=== PATIENT | female | born 1960 | race Caucasian/White ===

== ENCOUNTER 2024-04-23 10:42 | Emergency (ER) | payer OTHER, SELFPAY ==
[2024-04-23 10:53] VITALS: BP 192/118
[2024-04-23 11:26] VITALS: BP 197/125
[2024-04-23 11:31] VITALS: BMI 36.9
--- NOTE | 2024-04-23 11:53 | ED.GENMED ---
History of Present Illness
<PAM Dyer Last Filed: 04/23/24 14:09>
General
Chief Complaint: Breathing Problem
Source: patient
Exam Limitations: none
Time Seen by Provider: 04/23/24 11:29
Nursing documentation reviewed up to this point in time: agreed with
History of Present Illness
History of Present Illness:
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 Patient states that for the past 2 days, she has had shortness of
breath, cough, and runny nose and sore throat. Patient went to urgent care today and they did test her for COVID which was positive. He also did a chest x-ray which according to her did not show any evidence of pneumonia. However, considering her
history of PE, patient was sent to the emergency department for further evaluation. Patient denies chest pain, palpitations. Patient denies pain or swelling in her lower extremities. Patient denies recent long distance travel. Patient does note
that she has a family history of blood clots and states that her father of a PE, and her sister has had many blood clots. Patient [place] any history of cancer. Patient is a abdominal pain, fevers or chills, dysphagia, tongue or lip swelling,
recent new medications. Patient denies any known sick contacts.
Past History
<PAM Dyer Last Filed: 04/23/24 14:09>
Past History
ED Past Medical History: HTN and Other (Cellulitis, Kidney stones, Horse shoe blood clot in the chest)
ED Past Surgical History: (X 1) and Other (gastric bypass)
Social History
Tobacco: Non-smoker
Alcohol: Daily (Wine 3 glasses)
Personal:
Living: with family
Review of Systems
<Paz Contreras PA-C - Last Filed: 04/23/24 14:09>
Review of Systems
All Other Systems: ROS reviewed and negative except as documented in HPI and ROS
Phy Exam
<Paz Contreras PA-C - Last Filed: 04/23/24 14:09>
Physical Exam
Physical Exam:
General: Patient is well appearing and in no acute distress; non-toxic
Skin: Warm and dry, no rashes or lesions
Head: Normocephalic, atraumatic
Eyes: Sclera non-icteric. EOMs intact. PERRLA.
Mouth/throat: Dentition intact, no intraoral lesions, mild pharyngeal erythema, uvula midline
Cardiac: Regular rate and rhythm, no murmurs.
Peripheral Vascular: No lower extremity swelling or edema
Pulm: Normal respiratory effort, no wheezes, rales, rhonchi
Abdomen: No abdominal tenderness to palpation
Neuro: CN II-XII intact, no focal neurologic deficits.
Psychiatric: Appropriate mood and affect.
Scores
<Paz Contreras PA-C - Last Filed: 04/23/24 14:09>
Heart Failure Risk
Heart Failure Risk Score: Not Applicable
PE Wells Score
Symptoms of DVT: No
No alternative diagnosis better explains the illness: No
Tachycardia with pulse > 100: No
Immobilization (>=3 days) or surgery within previous 4 weeks: No
Prior history of DVT or pulmonary embolism: Yes
Presence of hemoptysis: No
Presence of malignancy: No
Pulmonary Embolism Risk Score: 1.5
Probability of PE: Pt is low risk
<Karen Kelly MD - Last Filed: 04/23/24 12:23>
PE Wells Score
Symptoms of DVT: No
No alternative diagnosis better explains the illness: No
Tachycardia with pulse > 100: No
Immobilization (>=3 days) or surgery within previous 4 weeks: No
Prior history of DVT or pulmonary embolism: Yes
Presence of hemoptysis: No
Presence of malignancy: No
Pulmonary Embolism Risk Score: 1.5
Probability of PE: Pt is low risk
Course
<Paz Contreras PA-C - Last Filed: 04/23/24 14:09>
Orders/Labs/Results
Orders:
Orders
04/23/24 12:06
Electrocardiogram (*1) Urgent
Reason for Study: Shortness of Breath
EKG- Treatment ONCE
04/23/24 12:14
Complete Blood Count/With Diff Urgent
Comprehensive Metabolic Panel Urgent
04/23/24 12:40
D-Dimer Urgent
Abnormal Lab Results
04/23/24 04/23/24
12:14 12:40
WBC 4.5 L 10^3/uL
(4.8-10.8)
RBC 4.04 L 10^6/uL
(4.20-5.40)
MPV 10.7 H fL
(7.4-10.4)
Monocytes % 11.1 H %
(1.7-9.3)
D-Dimer 0.61 H ug/mlFEU
(0.00-0.50)
Chloride 109 H mmol/L
(98-107)
Alkaline Phosphatase 138 H U/L
(38-126)
04/23/24 12:14
04/23/24 12:14
Vital Signs
Initial and Last Documented VS:
Initial Vital Signs
Pulse Resp BP Pulse Ox
81 16 192/118 100
04/23/24 10:53 04/23/24 10:53 04/23/24 10:53 04/23/24 10:53
Last Documented Vital Signs
Pulse Resp BP Pulse Ox
80 14 159/107 99
04/23/24 12:46 04/23/24 12:46 04/23/24 13:38 04/23/24 12:46
<Kaern Kelly MD - Last Filed: 04/23/24 12:23>
Orders/Labs/Results
Orders:
Orders
04/23/24 12:06
Electrocardiogram (*1) Urgent
Reason for Study: Shortness of Breath
EKG- Treatment ONCE
04/23/24 12:14
Complete Blood Count/With Diff Urgent
Comprehensive Metabolic Panel Urgent
04/23/24 12:40
D-Dimer Urgent
Abnormal Lab Results
04/23/24 04/23/24
12:14 12:40
WBC 4.5 L 10^3/uL
(4.8-10.8)
RBC 4.04 L 10^6/uL
(4.20-5.40)
MPV 10.7 H fL
(7.4-10.4)
Monocytes % 11.1 H %
(1.7-9.3)
D-Dimer 0.61 H ug/mlFEU
(0.00-0.50)
Chloride 109 H mmol/L
(98-107)
Alkaline Phosphatase 138 H U/L
(38-126)
04/23/24 12:14
04/23/24 12:14
Vital Signs
Initial and Last Documented VS:
Initial Vital Signs
Pulse Resp BP Pulse Ox
81 16 192/118 100
04/23/24 10:53 04/23/24 10:53 04/23/24 10:53 04/23/24 10:53
Last Documented Vital Signs
Pulse Resp BP Pulse Ox
80 14 159/107 99
04/23/24 12:46 04/23/24 12:46 04/23/24 13:38 04/23/24 12:46
<Paz Contreras PA-C - Last Filed: 04/23/24 14:09>
MDM/Problems Addressed
Differential Diagnosis Includes:
ddx COVID-19, pulmonary embolism, pneumothorax, ACS,
MDM/Problems Addressed:
Shortness of breath:
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 Patient states that for the past 2 days, she has had shortness of
breath, cough, and runny nose and sore throat. Denies any recent travel, any history of cancer. Patient takes no blood thinner but does take 1 aspirin once daily. Went to urgent care today tested negative for COVID-19. Here in the emergency
department her CBC and CMP unremarkable. Her Wells score places her at a low risk for PE at this time, making D-dimer more reliable. Her D-dimer today is elevated at 0.61 ug/mlFEU however her age adjusted d dimer places her in normal range.
Considering patient is not tachycardic, not hypoxic, her lungs are clear, and she has an alternative diagnosis of COVID to explain her symptoms, no indication for CTA, patient stable for discharge, return precautions discussed.
Patient's blood pressure was elevated today. Patient does have a hx of HTN and states that she did take her lisinopril today. Patients pressure came down from 192/118 to 159/107 without intervention. Patient unsure what her baseline blood pressure
is. Patient states that she regularly follows with a primary care provider. I suspect this is her illness likely contributing to the elevation, however I did advise patient to call her primary appointment for follow-up. She states that she will
do this, gave return precautions, no indication for acute lowering at this time.
Chronic conditions affecting care:
HTN, hx of gastiric bypass
Acute Exacerbation and/or Progression of Chronic Illness:
HTN
<Paz Contreras PA-C - Last Filed: 04/23/24 14:09>
*Radiology
Radiology exam reviewed: preliminary read by ED provider (I reviewed x-ray from urgent care--no evidence of pneumonia or pneumothorax )
*Pulse Oximetry
Patient hypoxic: no
*Critical Care Note
Total Time (30-74mins, 75-104mins- exclusive of procedures): Not Applicable
Data Reviewed
Review of Other/Old Records Reveals: Records (Reviewed ER physician documentation from 05/17/2021)
Source: patient and records
<Paz Contreras PA-C - Last Filed: 04/23/24 14:09>
Patient Management
Escalation/DeEscalation of care consider admission/obs:
admission not indicated--patient states that her shortness of breath did improve a bit while here in the ER and feels she can go home without any neb treatments/inhalers
ED Attending Note
<Paz Contreras PA-C - Last Filed: 04/23/24 14:09>
-
Portions of this chart may have been created with voice recognition software.� Occasional wrong word or��sound alike� substitutions may have occurred due to the inherent limitations of voice recognition software.
Discharge Plan
Departure
Patient Disposition: Home (Routine Discharge)
Date of Disposition: 04/23/24
Time of Disposition: 13:29
Patient with high blood pressure during this ER visit?: Yes
Condition: Good
Discharge Problem:
COVID-19
Instructions: COVID-19 ED, BLOOD PRESSURE
Prescriptions:
No Action
aspirin 325 MG tablet
325 mg PO DAILY
folic acid 0.4 MG tablet
0.4 mg PO DAILY
alprazolam 0.25 MG tablet
0.25 mg PO DAILYPRN PRN (Reason: anxiety)
lisinopril 10 MG tablet
10 mg PO DAILY
ibuprofen 200 MG tablet
400 mg PO Q6HPRN PRN (Reason: mild pain)
ergocalciferol (vitamin D2) 50,000 UNITS capsule
50,000 units PO MO
Turmeric
1,500 mg PO DAILY
Zinc
50 mg PO DAILY
cyanocobalamin (vitamin B-12) 5,000 MCG capsule
5,000 mcg PO DAILY
oxycodone 5 MG tablet
5 mg PO Q4HPRN PRN (Reason: moderate pain) Qty: 5 0RF
Referrals:
Ben Pandya MD [Family Provider] -
Activity Restrictions/Additional Instructions:
Please stay well rested and well hydrated.
Please return to the emergency department should you experience chest pain, an acute worsening of your symptoms, intractable vomiting, lip or tongue swelling, jaw pain, difficulty speaking, confusion, weakness, or any other concerning signs or
symptoms.
Please schedule a follow up with your primary care provider to address your blood pressure.
Interventions
Interventions:
*Risk Screen - Suicide Last Done: 04/23/24 11:31
*General Assessment Last Done: 04/23/24 11:31
*Neglect/Abuse Screening Last Done: 04/23/24 11:31
ED- Fall Risk Assessment Last Done: 04/23/24 11:31
*ED COVID-19 Vaccine History Last Done: 04/23/24 10:53
*Nursing Disposition Last Done: 04/23/24 13:48
ED- Cardiac Assessment Last Done: 04/23/24 11:31
ED- Pulmonary Assessment Last Done: 04/23/24 11:31
Discharge Date and Time
Discharge Date/Time: 04/23/24 13:50
Print Language: SERBIAN
[2024-04-23 12:00] VITALS: BP 151/110
[2024-04-23 12:23] LABS: % Basophils 0.9 % (0-2); % Eosinophils 4.4 % (0-6); % Immature Granulocytes 0.2 % (0-0.5); % Lymphocytes 32.9 % (20.5-51.1); % Monocytes 11.1 % (1.7-9.3); % Neutrophils 50.5 % (42.2-75.2); Absolute Eosinophils 0.2 10^3/uL (0-0.7); Absolute Lymphocytes 1.5 10^3/uL (1.2-3.4); Absolute Monocytes 0.5 10^3/uL (0.1-0.6); Absolute Neutrophils 2.3 10^3/uL (1.4-6.5); Hematocrit 37.2 % (37.0-47.0); Hemoglobin 12.3 g/dL (12.0-16.0); Mean Corp Hgb Conc. 33.1 g/dL (33.0-37.0); Mean Corpuscular Hgb 30.4 pg (27.0-31.0); Mean Corpuscular Volume 92.1 fL (81.0-99.0); Mean Platelet Volume 10.7 fL (7.4-10.4); Nucleated Red Blood Cells % 0 %; Platelet Count 216 10^3/uL (130-400); Red Blood Cell Count 4.04 10^6/uL (4.20-5.40); Red Cell Dist. Width 13.9 % (11.5-14.5); White Blood Cell Count 4.5 10^3/uL (4.8-10.8)
[2024-04-23 12:35] LABS: ALT (SGPT) 22 U/L (0-35); AST (SGOT) 32 U/L (14-36); Albumin 3.9 g/dl (3.5-5.0); Alkaline Phosphatase 138 U/L (38-126); Blood Urea Nitrogen 16 mg/dl (7-17); Calcium 9.4 mg/dl (8.4-10.2); Carbon Dioxide 23 mmol/L (22-30); Chloride 109 mmol/L (98-107); Estimated Creatinine Clearance 112 ml/min; Glucose 97 mg/dl (70-99); Potassium 4.3 mmol/L (3.5-5.1); Sodium 139 mmol/L (135-145); Total Bilirubin 0.4 mg/dl (0.2-1.3); Total Protein 6.4 g/dl (6.3-8.2); eGFR > 60.00
[2024-04-23 13:00] VITALS: BP 158/118
[2024-04-23 13:01] LABS: D-Dimer 0.61 ug/mlFEU (0.00-0.50)
[2024-04-23 13:38] VITALS: BP 159/107
== END 2024-04-23 13:50 | disposition home or self-care (01) ==
LOC: EMR 10:42
PROVIDERS: Physician Assistant; EMERGENCY PHYSICIAN Emergency Medicine; FAMILY PHYSICIAN Family Medicine
DX: U07.1 COVID-19 (principal); I10 Essential (primary) hypertension
CPT/HCPCS: 99284; 80053; 85025; 85379; 93005

== ENCOUNTER 2025-04-24 07:08 | Emergency (ER) | payer OTHER, SELFPAY ==
[2025-04-24 07:13] VITALS: BP 163/100
--- NOTE | 2025-04-24 08:20 | ED.GENMED ---
History of Present Illness
General
Chief Complaint: Musculo-Skeletal Complaint
Source: patient
Time Seen by Provider: 04/24/25 08:02
History of Present Illness
History of Present Illness:
65-year-old female with past medical history of DVT/PE (currently not on any anticoagulation), hypertension presenting to the emergency department for evaluation after she was getting out of her bathtub around 3 AM, excellently slipped and fell
landing onto her left shoulder and since that time has had pain, diminished range of motion and difficulty lifting objects with her left arm. Patient denies any previous history of injury or surgery. She did take two 500 mg tablets of
acetaminophen with some relief of the pain but due to the lack of range of motion decided come to the ER for further evaluation. Patient denies any head injury, LOC, vomiting, visual changes, any other extremity related injuries or any other
concerns presently.
Past History
Past History
ED Past Medical History: HTN, Other (Cellulitis, Kidney stones, Horse shoe blood clot in the chest) and Other (DVT/PE)
ED Past Surgical History: (X 1) and Other (gastric bypass)
Social History
Tobacco: Non-smoker
Alcohol: Daily (Wine 3 glasses)
Drug: None
Personal:
Living: with family
Review of Systems
Review of Systems
All Other Systems: ROS reviewed and negative except as documented in HPI and ROS
Phy Exam
Physical Exam
Physical Exam:
GENERAL: Alert , in no apparent distress
EYE: conjunctiva clear
Head: Normocephalic atraumatic
NECK: Supple, no midline tenderness
ENT: mmm.
LUNGS: no acute respiratory distress
NEUROLOGICAL: Alert and oriented
SKIN: Warm and dry, skin intact.
MUSCULOSKELETAL: LUE: No obvious deformity, erythema, edema, ecchymosis, abrasions or lacerations. There is generalized tenderness diffusely over the humeral head but without any palpable bony step-offs. Range of motion is significantly limited
to the shoulder secondary to pain however patient is able to flex and extend the elbow, wrist and digits without any difficulty. Easily palpable radial pulse. Cap refill less than 2 seconds. Sensation is grossly intact to light touch. Remainder
of other extremities is within normal limits and without any signs of trauma
PSYCH: Normal and appropriate interaction.
Scores
Heart Failure Risk
Heart Failure Risk Score: Not Applicable
Heart Score for Chest Pain Patients
STEMI patient?: Not applicable
Withdrawal Assessment of Alcohol
Withdrawal Assessment Completed?: Not applicable
Course
Orders/Labs/Results
Orders:
Orders
04/24/25 07:18
Shoulder, Left 2 View CR [CR Shoulder - Left Min 2 View*] Urgent
Comment:
Reason For Exam: fall
04/24/25 08:20
Sling Left-Treatment ONCE
Vital Signs
Initial and Last Documented VS:
Initial Vital Signs
Temp Pulse Resp BP Pulse Ox
97.9 F 95 20 163/100 98
04/24/25 07:13 04/24/25 07:13 04/24/25 07:13 04/24/25 07:13 04/24/25 07:13
Last Documented Vital Signs
Temp Pulse Resp BP Pulse Ox
97.9 F 95 20 163/100 98
04/24/25 07:13 04/24/25 07:13 04/24/25 07:13 04/24/25 07:13 04/24/25 08:21
MDM/Problems Addressed
Differential Diagnosis Includes:
- Fracture
- Sprain
- Dislocation
- Rotator cuff pathology
- Bursitis
- No signs of intracranial pathology
- No symptoms to suggest neurovascular injury
MDM/Problems Addressed:
65-year-old female presenting to the ER for evaluation following an accidental slip and fall resulting in left shoulder pain and diminished range of motion. X-ray ordered from triage shows no significant abnormalities, mild degenerative changes
noted. There is no evidence for fracture or dislocation, I suspect left shoulder sprain/rotator cuff pathology is most likely diagnosis. Continue NSAIDs/Tylenol as needed for pain. Will provide a sling for comfort. Information for outpatient
orthopedics follow-up provided. Stable for discharge home and aware of return precautions.
*Radiology
Radiology exam reviewed: preliminary read by ED provider (No acute fracture or dislocation)
*Pulse Oximetry
SaO2: 98
Oxygen Mode of Delivery: Room air
Patient hypoxic: no
*Critical Care Note
Total Time (30-74mins, 75-104mins- exclusive of procedures): Not Applicable
ED Attending Note
-
Portions of this chart may have been created with voice recognition software.� Occasional wrong word or��sound alike� substitutions may have occurred due to the inherent limitations of voice recognition software.
Discharge Plan
Departure
Patient Disposition: Home (Routine Discharge)
Date of Disposition: 04/24/25
Time of Disposition: 08:20
Patient with high blood pressure during this ER visit?: Yes
Discharge Problem:
Sprain of left shoulder, Accidental fall
Instructions: Shoulder Sprain ED
Prescriptions:
No Action
aspirin 325 MG tablet
325 mg PO DAILY
folic acid 0.4 MG tablet
0.4 mg PO DAILY
alprazolam 0.25 MG tablet
0.25 mg PO DAILYPRN PRN (Reason: anxiety)
lisinopril 10 MG tablet
10 mg PO DAILY
ibuprofen 200 MG tablet
400 mg PO Q6HPRN PRN (Reason: mild pain)
ergocalciferol (vitamin D2) 50,000 UNITS capsule
50,000 units PO MO
Turmeric
1,500 mg PO DAILY
Zinc
50 mg PO DAILY
cyanocobalamin (vitamin B-12) 5,000 MCG capsule
5,000 mcg PO DAILY
oxycodone 5 MG tablet
5 mg PO Q4HPRN PRN (Reason: moderate pain) Qty: 5 0RF
Referrals:
Casey Soliz MD [Active, Orthopedics]
Ben Pandya MD [Family Provider, Family Practice]
Interventions
Interventions:
*Risk Screen - Suicide Last Done: 04/24/25 07:13
*General Assessment Last Done: 04/24/25 07:13
*Neglect/Abuse Screening Last Done: 04/24/25 07:13
*ED- Fall Risk Assessment Last Done: 04/24/25 08:59
*ED COVID-19 Vaccine History Last Done: 04/24/25 08:59
*Nursing Disposition Last Done: 04/24/25 08:59
ED-Musculoskeletal Assessment Last Done: 04/24/25 09:01
Discharge Date and Time
Discharge Date/Time: 04/24/25 09:01
Print Language: ANDORRAN
== END 2025-04-24 09:01 | disposition home or self-care (01) ==
LOC: EMR 07:08
PROVIDERS: EMERGENCY PHYSICIAN Emergency Medicine; FAMILY PHYSICIAN Family Medicine
DX: S43.402A Unspecified sprain of left shoulder joint, initial encounter (principal); W18.2XXA Fall in (into) shower or empty bathtub, initial encounter; I10 Essential (primary) hypertension; Z98.84 Bariatric surgery status; Z86.711 Personal history of pulmonary embolism; Z86.718 Personal history of other venous thrombosis and embolism
CPT/HCPCS: 99283; 73030